=== PATIENT | male | born 1965 | race Caucasian/White ===

== ENCOUNTER → 2018-06-27 | Day surgery (SDC) | payer OTHER ==
[~2018-06-27] VITALS: Ht 167.6 cm; Wt 87.1 kg
[~2018-06-27] MED LIST: PERCOCET 5-3251 EACH PO
--- NOTE | 2018-06-27 16:51 | Operative Report ---
Operative/Inv Procedure Report Surgery Date: 06/27/18 Name of Procedure: Laparoscopic preperitoneal reduction repair of left indirect scrotal hernia Pre-Operative Diagnosis: Left inguinal scrotal hernia Post-Operative Diagnosis: Same, indirect Estimated Blood Loss: scant Surgeon/Glass Block Bender: Daniel MUSE,Eric MINA Anesthesia: general endotracheal tube Specimens: None Complications: None Operative/Procedure Note Note: The patient was placed on the operating table in the supine position. After suitable general anesthesia was obtained the abdomen was prepped and draped in the usual sterile manner. A transverse infraumbilical incision was made and carried down through the skin and subcutaneous tissue. The anterior rectus fascia on the left side was transversely incised. The rectus muscle was dissected superiorly and laterally. The dissecting balloon was placed in the sub-rectus plane down to the pubic tubercle. This was confirmed to be in good position with the laparoscope. This was inflated to 40 puffs of air. This was deflated and removed. The structural balloon was inflated and locked in place. A pneumo preperitoneum was established. The lower abdominal 5 mm ports were placed under direct laparoscopic visualization. The patient was placed in Trendelenburg position. Blunt dissection the left groin revealed the above anatomy. No direct defect was noted. Laterally there was a thin-walled large indirect sac which was entered during dissection. A fair amount of omentum was pulled down from the scrotum and placed back into the peritoneal cavity. The remainder of the sac was dissected down from the spermatic cord structures as far up into the preperitoneum as possible. A plane was developed posterior to the cord structures for eventual placement of mesh. Medially no direct defect was noted and the dissection was taken across the midline towards the patient's right side. A piece of pro-digital sales assistant mesh was then soaked in bacitracin antibiotic solution and a slit was placed laterally. The mesh was introduced into the preperitoneal space and laid along the anterior abdominal wall. The arms of the mesh laterally went around the spermatic cord with overlap of the inferior flap over the superior flap laterally forming a new internal ring. An absorbatack was used to tack the mesh flaps to each other laterally. Medially the mesh was noted to lay flat along the anterior abdominal wall and did extend towards the right side of midline to the pubic tubercle. The mesh was adhering nicely to the anterior abdominal wall. The preperitoneum was then desufflated under direct visualization. All ports were removed. The anterior rectus fascia was closed with a running heavy Vicryl suture. Subcutaneous tissue was closed with 3-0 Vicryl sutures. All skin incisions were closed with 5-0 Vicryl subcuticular skin closure. Steri-Strips and Band-Aids were applied. The left testicle was noted to be in the appropriate hemiscrotum. The patient tolerated the procedure well and was taken to the recovery room with stable vital signs.
== END ==
LOC: STS 02:38
DX: K40.90 Unilateral inguinal hernia, without obstruction or gangrene, not specified as recurrent (principal); Z86.718 Personal history of other venous thrombosis and embolism; Z79.01 Long term (current) use of anticoagulants
CPT/HCPCS: C1781; J0131; J0690; J2250; J3490